=== PATIENT | male | born 1940 | race African-American/Black ===

== ENCOUNTER 2019-01-25 15:57 | Emergency (ER) | payer MEDICARE, MEDICAID ==
--- NOTE | 2019-01-25 16:39 | ER Document Report ---
ED Medical Screen (RME) - General Chief Complaint: Pain With Urination Stated Complaint: FLANK PAIN Time Seen by Provider: 01/25/19 16:30 Notes: Cachectic appearing 78-year-old male with COPD on oxygen [id number] and history of frequent urinary tract infections presents to the emergency department with chief concern for urinary tract infection. Patient has had a burning sensation when voiding for the last week or so. Patient does have incontinence. Patient's physical therapist noticed a worsening foul-smelling odor when patient was at physical therapy. Denies fevers, always complains of chills, denies chest pain, denies abdominal pain. Exam: Cachectic, nontoxic-appearing. Lungs clear to auscultation in all [place], abdominal exam deferred in triage I have greeted and performed a rapid initial assessment of this patient. A comprehensive ED assessment and evaluation of the patient, analysis of test results and completion of medical decision making process will be conducted by an additional ED providers. TRAVEL OUTSIDE OF THE [place] IN LAST 30 DAYS: No - Related Data Allergies/Adverse Reactions: No Known Allergies Allergy (Verified 01/25/19 16:32) Past Medical History - Social History Chew tobacco use (# tins/day): No Frequency of alcohol use: None Drug Abuse: None Physical Exam - Vital signs Vitals: Temp Pulse BP Pulse Ox 97.5 F 91 117/76 92 01/25/19 16:06 01/25/19 16:06 01/25/19 16:06 01/25/19 16:06 Course - Vital Signs Vital signs: Temp Pulse Resp BP Pulse Ox 97.5 F 91 117/76 92 01/25/19 16:06 01/25/19 16:06 01/25/19 16:06 01/25/19 16:06
--- NOTE | 2019-01-25 17:15 | ER Document Report ---
ED General - General Chief Complaint: Pain With Urination Stated Complaint: FLANK PAIN Time Seen by Provider: 01/25/19 16:30 TRAVEL OUTSIDE OF THE [place] IN LAST 30 DAYS: No - HPI Notes: Patient is a 78-year-old male with a history of oxygen dependent COPD, urinary incontinence, recurrent UTI, and previous [place] with port placement, not currently on any medications, who presents complaining of foul-smelling urine for the past 5 days, but worsening per the physical therapist today patient prompted him to leila manzano brought here for evaluation. Patient states that he is otherwise feeling well and is able to eat and drink without difficulty, but does have decreased p.o. intake which is not uncommon for him. He is having normal bowel movements. He has no shortness of breath or cough outside it is normal. Denies drug allergies. Pt also accompanied by a faculty member. Pt is in physical therapy for strengthening due to his frailness. Denies any headache, fever, neck pain, changes in vision/speech/mentation/he aring, URI, sore throat, chest pain, palpitations, syncope, cough, shortness of breath, wheeze, dyspnea, abdominal pain, nausea/vomiting/diarrhea, back pain, or rash. - Related Data Allergies/Adverse Reactions: No Known Allergies Allergy (Verified 01/25/19 16:32) Past Medical History - Social History Smoking Status: Former Smoker Chew tobacco use (# tins/day): No Frequency of alcohol use: None Drug Abuse: None Family History: Reviewed & Not Pertinent Patient has suicidal ideation: No Patient has homicidal ideation: No Review of Systems - Review of Systems -: Yes All other systems reviewed and negative Physical Exam - Vital signs Vitals: Temp Pulse BP Pulse Ox 97.5 F 91 117/76 92 01/25/19 16:06 01/25/19 16:06 01/25/19 16:06 01/25/19 16:06 - Notes Notes: PHYSICAL EXAMINATION: GENERAL: cachectic and in no acute distress. A&O. Answers questions appropriately. HEAD: Atraumatic, normocephalic. EYES: Pupils equal round and reactive to light, extraocular movements intact, sclera anicteric, conjunctiva are normal. ENT: Nares patent and without discharge. oropharynx clear without exudates. No tonsilar hypertrophy or erythema. Moist mucous membranes. NECK: Normal range of motion, supple without lymphadenopathy LUNGS: Breath sounds clear to auscultation bilaterally and equal. No wheezes rales or rhonchi. HEART: Regular rate and rhythm without murmurs, rubs, gallops. ABDOMEN: Soft, nontender, nondistended abdomen. No guarding, no rebound. Normal bowel sounds present. No CVA tenderness bilaterally. Musculoskeletal: FROM to passive/active. Strength 5+/5. Extremities: No cyanosis, clubbing, or edema b/l. Peripheral pulses 2+. Capillary refill less than 3 seconds. NEUROLOGICAL: Normal speech, normal gait. PSYCH: Normal mood, normal affect. SKIN: Warm, Dry, normal turgor, no rashes or lesions noted. Course - Re-evaluation Re-evalutation: 01/25/19 19:39 Patient is a 78-year-old male who presents with an acute UTI, possible pyelonephritis vitals are acceptable without significant tachycardia, tachypnea, or hypoxia. PE is otherwise unremarkable. Patient's abdomen is soft and nontender. He is nontoxic-appearing and is tolerating p.o. without difficulty. CBC and CMP unremarkable. See urinalysis. Urine culture is pending. Patient was given 1 g of Rocephin IV and fluids. No further work-up warranted at this time. Patient states that he is feeling well overall and would like to go home. Low suspicion/risk for acute appendicitis, bowel obstruction, acute cholecystitis, perforated diverticulitis, incarcerated hernia, pancreatitis, perforated ulcer, peritonitis, sepsis, or other systemic emergent condition at this time. Patient is aware that his condition can change from initial presentation and he needs to monitor symptoms closely and seek medical attention if any acute changes. I will send him home with prescription for Keflex. Conservative measures otherwise for symptoms. Recheck with PCM in 2-3 days. Consider consult with a urologist. Return to the ED with any worsening/concerning symptoms otherwise as reviewed in discharge. Patient/faculty member in agreement. - Vital Signs Vital signs: Temp Pulse Resp BP Pulse Ox 97.5 F 91 18 104/58 L 92 01/25/19 16:06 01/25/19 16:06 01/25/19 17:10 01/25/19 17:10 01/25/19 16:06 - Laboratory Result Diagrams: 01/25/19 18:58 01/25/19 18:58 Laboratory results interpreted by me: 01/25/19 01/25/19 01/25/19 17:10 18:58 18:58 RBC 3.47 L Hgb 11.3 L Hct 34.0 L MCV 98 H RDW 14.6 H Lymph % (Auto) 10.8 L [place] % (Auto) 13.2 H Sodium 134.2 L Urine Protein 30 H Urine Blood MODERATE H Ur Leukocyte Esterase MODERATE H Discharge - Discharge Clinical Impression: Acute UTI (urinary tract infection) Condition: Stable Disposition: HOME, SELF-CARE Instructions: Urinary Tract Infection ([facility]), Cephalexin ([facility]) Additional Instructions: Push fluids (i.e. water, cranberry juice) Proper hygenic technique Keep the skin clean Tylenol/ibuprofen as needed Take medications as directed F/u with your PCM in 2-3 days for a recheck Consider consult with a Urologist for ongoing/worsening symptoms. Return to the ED with any worsening symptoms and/or development of fever, headache, chest pain, palpitations, syncope, shortness of breath, trouble breathing, abdominal pain, n/v/d, blood in stool/urine, loss of control of bowel/bladder, urinary retention, or other worsening symptoms that are concerning to you. Prescriptions: Cephalexin Monohydrate [Keflex 500 mg Capsule] 500 mg PO TID #21 capsule Referrals: [facility] [Provider Group] - Follow up as needed
[2019-01-25] MEDS ORDERED: NORMAL SALINE 1000 ML 1,000 ML IV ONE (17:36)
[2019-01-25 18:26] LABS: AMORPHOUS SEDIMENT,URINE TRACE /HPF; APPEARANCE,URINE TURBID; BILIRUBIN,URINE NEGATIVE (NEGATIVE); COLOR,URINE AMBER; GLUCOSE, URINE NEGATIVE (NEGATIVE); KETONES,URINE NEGATIVE (NEGATIVE); LEUKOCYTE ESTERASE,URINE MODERATE (NEGATIVE); NITRITE,URINE NEGATIVE (NEGATIVE); PROTEIN,URINE 30 mg/dL (NEGATIVE); URINE SPECIFIC GRAVITY 1.018; UROBILINOGEN,URINE NEGATIVE mg/dL (<2.0)
[2019-01-25] MEDS ORDERED: CEFTRIAXONE 1 GM/D5W RTU 1 GM/50 ML RTUPB IV ONE (18:46)
[2019-01-25 19:10] LABS: ABSOLUTE EOSINOPHILS # (AUTO) 0.1 10^3/uL (0.0-0.6); ABSOLUTE LYMPHOCYTES (AUTO) 0.6 10^3/uL (0.5-4.7); ABSOLUTE MONOCYTES (AUTO) 0.7 10^3/uL (0.1-1.4); ABSOLUTE NEUT (AUTO) 3.8 10^3/uL (1.7-8.2); EOSINOPHILS % (AUTO) 1.1 % (0-6); HEMOGLOBIN 11.3 g/dL (13.5-17.0); LYMPHOCYTES % (AUTO) 10.8 % (13-45); MEAN CORPUSCULAR HEMOGLOBIN 32.4 pg (27.0-33.4); MEAN CORPUSCULAR HGB CONC 33.1 g/dL (32.0-36.0); MEAN CORPUSCULAR VOLUME 98 fl (80-97); MONOCYTES % (AUTO) 13.2 % (3-13); PLATELET COUNT 329 10^3/uL (150-450); RED BLOOD COUNT 3.47 10^6/uL (4.35-5.55); RED CELL DISTRIBUTION WIDTH 14.6 % (11.5-14.0); SEGMENTED NEUTROPHILS % (AUTO) 74.9 % (42-78); TOTAL CELLS COUNTED % (AUTO) 100 %; WHITE BLOOD COUNT 5.1 10^3/uL (4.0-10.5)
[2019-01-25 19:27] LABS: ALBUMIN 3.8 g/dL (3.5-5.0); ALKALINE PHOSPHATASE 72 U/L (38-126); ANION GAP 9 (5-19); ASPARTATE AMINO TRANSFERASE 21 U/L (17-59); BILIRUBIN,DIRECT 0.1 mg/dL (0.0-0.4); BILIRUBIN,TOTAL 0.5 mg/dL (0.2-1.3); BLOOD UREA NITROGEN 19 mg/dL (7-20); CALCIUM 9.2 mg/dL (8.4-10.2); CARBON DIOXIDE 26 mmol/L (22-30); CHLORIDE 99 mmol/L (98-107); GLUCOSE 80 mg/dL (75-110); POTASSIUM 4.7 mmol/L (3.6-5.0); TOTAL PROTEIN 6.9 g/dL (6.3-8.2)
[2019-01-25 19:49] VITALS: BP 128/79
== END 2019-01-25 20:05 | disposition home or self-care (01) ==
LOC: ER 15:57
DX: N39.0 Urinary tract infection, site not specified (principal); R30.9 Painful micturition, unspecified; R10.9 Unspecified abdominal pain; J44.9 Chronic obstructive pulmonary disease, unspecified; Z99.81 Dependence on supplemental oxygen; Z87.891 Personal history of nicotine dependence
CPT/HCPCS: 36591; 99283; 51701; 36415; 87040; 87086; 85025; 87088; 80053; 81001; 87186; J7030; J0696

== ENCOUNTER 2019-02-27 21:33 | Emergency (ER) | payer MEDICARE, MEDICAID ==
--- NOTE | 2019-02-27 21:52 | ER Document Report ---
ED General - General Stated Complaint: WEAKNESS Time Seen by Provider: 02/27/19 21:42 Notes: Patient is a 78-year-old male that comes to the emergency department for chief complaint of feeling lightheaded, nauseated, and having low blood pressure. Initial blood pressure by EMS was 84 systolic, he was given 250 mL's of IV fluids and his blood pressure did improve to 101 systolic reportedly. No fever reported, patient denies cough, chest pain, difficulty breathing, vomiting but he does report some generalized flank pain. He denies specific abdominal pain. He states he had a normal bowel movement, nonbloody within the past 24 hours. Past medical history of BPH with frequent UTIs including recently treatment with Keflex, this was about 2 weeks ago. He states he is generally not felt well since then. Remaining medical history includes COPD on 3 L nasal cannula at all times, CAD with stents. He lives at home with his family. TRAVEL OUTSIDE OF THE [place] IN LAST 30 DAYS: No - Related Data Allergies/Adverse Reactions: No Known Allergies Allergy (Verified 01/25/19 16:32) Past Medical History - General Information source: Patient, Relative - Social History Smoking Status: Former Smoker Frequency of alcohol use: None Drug Abuse: None Lives with: Family Family History: Reviewed & Not Pertinent - Past Medical History Cardiac Medical History: Reports: Hx Coronary Artery Disease Pulmonary Medical History: Reports: Hx COPD Renal/ Medical History: Reports: Hx Benign Prostatic Hyperplasia Past Surgical History: Reports: Hx Cardiac Catheterization - Immunizations Immunizations up to date: Yes Hx Diphtheria, Pertussis, Tetanus Vaccination: Yes Review of Systems - Review of Systems Constitutional: See HPI EENT: No symptoms reported Cardiovascular: No symptoms reported Respiratory: No symptoms reported Gastrointestinal: See HPI Genitourinary: See HPI Male Genitourinary: No symptoms reported Musculoskeletal: See HPI Skin: No symptoms reported Hematologic/Lymphatic: No symptoms reported Neurological/Psychological: No symptoms reported Physical Exam - Vital signs Vitals: Temp Resp 98.1 F 19 02/27/19 21:36 02/27/19 21:36 - Notes Notes: GENERAL: Very small and slightly chronically ill-appearing. Alert and conversational otherwise HEAD: Normocephalic, atraumatic. EYES: Pupils equal, round, and reactive to light. Extraocular movements intact. ENT: Oral mucosa moist, tongue midline. Oropharynx unremarkable. Airway patent. Nares patent, no nasal septal hematoma, TM's intact. NECK: Full range of motion. Supple. Trachea midline. LUNGS: Clear to auscultation bilaterally, no wheezes, rales, or rhonchi. No respiratory distress. HEART: Regular rate and rhythm. No murmur ABDOMEN: Soft, non-tender. Non-distended. Bowel sounds present in all 4 quadrants. GENITOURINARY: No concerning abnormality noted EXTREMITIES: Moves all 4 extremities spontaneously. No edema, normal radial and dorsalis pedis pulses bilaterally. No cyanosis. BACK: no cervical, thoracic, lumbar midline tenderness. No saddle anesthesia, normal distal neurovascular exam. Moves all extremities in full range of motion. NEUROLOGICAL: Alert and oriented x3. Normal speech. Cranial nerves II through XII grossly intact. PSYCH: Normal affect, normal mood. SKIN: Warm, dry, normal turgor. No rashes or lesions noted. Course - Re-evaluation Re-evalutation: Patient has a nontender abdomen, nontender flank, he is smiling, alert, well- appearing. His blood pressure is borderline low, however patient is very small, his daughter is here with the patient and I inquired about his normal blood pressures, she states normally they are in the 90s on average. They state that it is difficult to tell if something is wrong with patient and they just want him checked out. He lives with them. He is acting per baseline reportedly. CBC shows some leukopenia but this is not significantly changed from previously. Nonspecific otherwise. Chemistry unremarkable, troponin negative, urinalysis shows a few white blood cells but otherwise is clear, significantly improved from previously. EKG and chest x-ray nonspecific without concerning findings. I reevaluated patient. He has been given some IV fluids, he has no current c omplaints. They are asking if they can go home. Performed orthostatic vital signs and standing he did not become tachycardic and his systolic blood pressure was 101. Patient will be discharged with follow-up instructions and return precautions. Patient and family state appreciation and agreement. - Vital Signs Vital signs: Temp Pulse Resp BP Pulse Ox 98.1 F 72 14 121/65 92 02/27/19 21:36 02/28/19 02:13 02/28/19 02:01 02/28/19 02:13 02/28/19 01:43 - Laboratory Result Diagrams: 02/27/19 22:41 02/27/19 21:55 Laboratory results interpreted by me: 02/27/19 02/27/19 02/27/19 21:55 22:41 22:59 WBC 3.5 L RBC 3.54 L Hgb 11.1 L Hct 33.9 L RDW 14.8 H Abs Neuts (Manual) 1.6 L Albumin 3.4 L Urine Ketones TRACE H Discharge - Discharge Clinical Impression: Generalized weakness Low blood pressure Qualifiers: Hypotension type: unspecified hypotension type Qualified Code(s): I95.9 - Hypotension, unspecified Condition: Stable Disposition: HOME, SELF-CARE Additional Instructions: Your work-up generally does not show any concerning findings. We do have cultures of blood and urine in our lab. Follow closely with your primary care provider for additional management. Your white blood cells are a little bit low and should be rechecked. Come back if you are worse including passing out, difficulty breathing, chest pain, fever, vomiting, or any other concerning symptoms.
[2019-02-27] MEDS ORDERED: NORMAL SALINE 500 ML IV ONE (22:17)
[2019-02-27 22:33] LABS: ALBUMIN 3.4 g/dL (3.5-5.0); ALKALINE PHOSPHATASE 48 U/L (38-126); ANION GAP 7 (5-19); ASPARTATE AMINO TRANSFERASE 24 U/L (17-59); BILIRUBIN,DIRECT 0.1 mg/dL (0.0-0.4); BILIRUBIN,TOTAL 0.5 mg/dL (0.2-1.3); BLOOD UREA NITROGEN 16 mg/dL (7-20); CALCIUM 8.7 mg/dL (8.4-10.2); CARBON DIOXIDE 25 mmol/L (22-30); CHLORIDE 105 mmol/L (98-107); GLUCOSE 83 mg/dL (75-110); POTASSIUM 3.6 mmol/L (3.6-5.0); TOTAL PROTEIN 6.4 g/dL (6.3-8.2)
[2019-02-27 22:51] LABS: VENOUS BLOOD BASE EXCESS 1.8 mmol/L; VENOUS BLOOD HCO3 26.6 mmol/L (20-32); VENOUS BLOOD PCO2 42.6 mmHg (35-63); VENOUS BLOOD PH 7.41 (7.30-7.42)
[2019-02-27 23:01] LABS: HEMATOCRIT 33.9 % (37.9-51.0); HEMOGLOBIN 11.1 g/dL (13.5-17.0); MEAN CORPUSCULAR HEMOGLOBIN 31.2 pg (27.0-33.4); MEAN CORPUSCULAR HGB CONC 32.6 g/dL (32.0-36.0); MEAN CORPUSCULAR VOLUME 96 fl (80-97); PLATELET COUNT 213 10^3/uL (150-450); RED BLOOD COUNT 3.54 10^6/uL (4.35-5.55); RED CELL DISTRIBUTION WIDTH 14.8 % (11.5-14.0); WHITE BLOOD COUNT 3.5 10^3/uL (4.0-10.5)
--- NOTE | 2019-02-27 23:04 | RADIOLOGY REPORT (SQ) ---
EXAM DESCRIPTION: [facility]: XR CHEST 1 VIEW CLINICAL HISTORY: 78 years Male, dizzy, low blood pressure COMPARISON: None. FINDINGS: Lungs are hyperinflated, typical for COPD. No acute infiltrates. There is mild interstitial scarring in the right lung base. Left subclavian line tip is in the SVC. Heart size is normal. No superior mediastinal widening. Bony structures are unremarkable. IMPRESSION: 1. No acute infiltrates 2. Hyperinflation, typical for COPD.
[2019-02-27 23:16] LABS: APPEARANCE,URINE SLIGHTLY-CLOUDY; BILIRUBIN,URINE NEGATIVE (NEGATIVE); COLOR,URINE YELLOW; GLUCOSE, URINE NEGATIVE (NEGATIVE); KETONES,URINE TRACE mg/dL (NEGATIVE); LEUKOCYTE ESTERASE,URINE NEGATIVE (NEGATIVE); NITRITE,URINE NEGATIVE (NEGATIVE); PROTEIN,URINE NEGATIVE (NEGATIVE); URINE SPECIFIC GRAVITY 1.021; UROBILINOGEN,URINE NEGATIVE mg/dL (<2.0)
[2019-02-27 23:21] LABS: ABSOLUTE LYMPHOCYTES# (MANUAL) 1.3 10^3/uL (0.5-4.7); ABSOLUTE MONOCYTES # (MANUAL) 0.5 10^3/uL (0.1-1.4); ANISOCYTOSIS SLIGHT; BASOPHILS % (MANUAL) 1 % (0-2); EOSINOPHILS % (MANUAL) 3 % (0-6); LYMPHOCYTES % (MANUAL) 38 % (13-45); MONOCYTES % (MANUAL) 13 % (3-13); PLATELET COMMENT ADEQUATE; SEGMENTED NEUTROPHILS % (MAN) 45 % (42-78); TOTAL CELLS COUNTED 100
[2019-02-28 02:16] VITALS: BP 119/51
--- NOTE | 2019-02-28 14:42 | EKG REPORT ---
SEVERITY:- ABNORMAL ECG - PACEMAKER SPIKES OR ARTIFACTS SINUS RHYTHM CONSIDER ANTERIOR INFARCT NONSPECIFIC T ABNORMALITIES, LATERAL LEADS : Confirmed by: Lori Paz MD 28-Feb-2019 14:41:14
== END 2019-02-28 02:29 | disposition home or self-care (01) ==
LOC: ER 21:33
DX: R53.1 Weakness (principal); I95.9 Hypotension, unspecified; R42 Dizziness and giddiness; R11.0 Nausea; R10.9 Unspecified abdominal pain; J44.9 Chronic obstructive pulmonary disease, unspecified; Z99.81 Dependence on supplemental oxygen; I25.10 Atherosclerotic heart disease of native coronary artery without angina pectoris; Z87.891 Personal history of nicotine dependence
CPT/HCPCS: 93005; 36415; 87040; 87086; 85025; 87088; 80053; 81001; 84484; 82803; 83605; 71045; 93010; J7040; 87077; 87150; 99285